=== PATIENT | male | born 1930 | race Hispanic/Latino ===

== ENCOUNTER 2020-06-14 15:52 | Emergency (ER) | payer MEDICARE ==
[2020-06-14 16:38] LABS: #Basophils 0.1 thou/uL (0.0-0.2); #Eosinphils 0.2 thou/uL (0.0-0.7); #Lymphocytes 1.5 thou/uL (1.20-3.40); #Monocytes 0.5 thou/uL (0.11-0.59); #Neutrophils 7.2 thou/uL (1.40-6.50); %Basophils 0.6 % (0.0-1.0); %Eosinophils 1.7 % (0.0-10.0); %Lymphocytes 15.5 % (21.0-51.0); %Monocytes 4.9 % (0.0-10.0); %Neutrophils 77.3 % (42.0-75.0); Hemoglobin 12.1 g/dL (14.0-18.0); Mean Corpuscular Hemoglobin 30.8 pg (27.0-31.0); Mean Corpuscular Volume 93.3 fL (78.0-98.0); Mean Platelet Volume 6.9 fL (7.4-10.4); Platelet Count 204 thou/uL (130-400); RBC Distribution Width 13.1 % (11.5-14.5); Red Blood Cell (RBC) Count 3.93 mill/uL (4.70-6.10); White Blood Cell (WBC) Count 9.3 thou/uL (4.8-10.8)
[2020-06-14 17:01] LABS: ALT (SGPT) 19 U/L (8-55); AST (SGOT) 26 U/L (5-34); Albumin 3.7 g/dL (3.4-4.8); Alkaline Phosphatase 54 U/L (40-110); Anion Gap 17 mmol/L (10-20); BUN (Urea Nitrogen) 39 mg/dL (8.4-25.7); Bilirubin, Total 0.8 mg/dL (0.2-1.2); Calc. Creatinine Clearance 0 mL/min (70-130); Calcium 8.8 mg/dL (7.8-10.44); Carbon Dioxide 18 mmol/L (23-31); Chloride 106 mmol/L (98-107); Globulin 2.6 g/dL (2.4-3.5); Glucose 92 mg/dL (83-110); Potassium 5.1 mmol/L (3.5-5.1); Protein, Total 6.3 g/dL (5.8-8.1); Sodium 136 mmol/L (136-145)
== END 2020-06-14 18:27 | disposition home or self-care (01) ==
LOC: ERS 15:52
DX: I12.9 Hypertensive chronic kidney disease with stage 1 through stage 4 chronic kidney disease, or unspecified chronic kidney disease (principal); N18.9 Chronic kidney disease, unspecified; E86.0 Dehydration; L97.519 Non-pressure chronic ulcer of other part of right foot with unspecified severity; L03.031 Cellulitis of right toe; E78.5 Hyperlipidemia, unspecified; M10.9 Gout, unspecified
CPT/HCPCS: 36415; 80053; 84484; 85025; 93005

== ENCOUNTER 2020-07-06 14:11 | Outpatient (CLI) | payer MEDICARE | END 2020-07-06 14:12 | disposition home or self-care (01) | LOC: BICULT 14:11 | PROVIDERS: ATTEND Internal Medicine Cardiovascular Disease | DX: N18.30 Chronic kidney disease, stage 3 unspecified (principal) | CPT/HCPCS: 76770 ==

== ENCOUNTER 2020-08-24 10:34 | Inpatient (IN) | payer MEDICARE ==
[2020-08-24 11:11] LABS: #Basophils 0.1 thou/uL (0.0-0.2); #Eosinphils 0.3 thou/uL (0.0-0.7); #Lymphocytes 1.8 thou/uL (1.20-3.40); #Monocytes 0.5 thou/uL (0.11-0.59); #Neutrophils 4.9 thou/uL (1.40-6.50); %Eosinophils 3.5 % (0.0-10.0); %Monocytes 6.7 % (0.0-10.0); %Neutrophils 64.9 % (42.0-75.0); Hemoglobin 11.6 g/dL (14.0-18.0); Mean Corpuscular Hemoglobin 31.1 pg (27.0-31.0); Mean Corpuscular Volume 94.1 fL (78.0-98.0); Mean Platelet Volume 7.9 fL (7.4-10.4); Platelet Count 193 thou/uL (130-400); RBC Distribution Width 13.7 % (11.5-14.5); Red Blood Cell (RBC) Count 3.74 mill/uL (4.70-6.10); White Blood Cell (WBC) Count 7.6 thou/uL (4.8-10.8)
[2020-08-24 11:24] LABS: INR-International Normal Ratio 0.9; PTT 42.2 sec (22.9-36.1); Prothrombin Time 12.8 sec (12.0-14.7)
[2020-08-24 11:36] LABS: ALT (SGPT) 13 U/L (8-55); AST (SGOT) 18 U/L (5-34); Alkaline Phosphatase 49 U/L (40-110); Anion Gap 14 mmol/L (10-20); BUN (Urea Nitrogen) 47 mg/dL (8.4-25.7); Bilirubin, Total 0.6 mg/dL (0.2-1.2); CK (CPK) 52 U/L (30-200); Calc. Creatinine Clearance 0 mL/min (70-130); Carbon Dioxide 19 mmol/L (23-31); Chloride 110 mmol/L (98-107); Globulin 3.1 g/dL (2.4-3.5); Glucose 107 mg/dL (83-110); Potassium 4.5 mmol/L (3.5-5.1); Protein, Total 7.1 g/dL (5.8-8.1); Sodium 138 mmol/L (136-145)
[2020-08-24 14:30] LABS: Troponin I Less than 0.010 ng/mL (< 0.028)
[2020-08-24 17:55] LABS: SARS-CoV-2 PCR by NAA Not Detected (NotDetected)
[2020-08-24 18:04] LABS: Troponin I Less than 0.010 ng/mL (< 0.028)
[2020-08-24] MEDS ORDERED: Nitroglycerin 0.4 MG TAB (25 Tab Bottle) SL PRN (18:56)
[2020-08-24] MEDS ORDERED: Zolpidem Tartrate 5 MG TAB PO PRN (18:57)
[2020-08-24] MEDS ORDERED: Acetaminophen 325 MG TAB PO PRN (18:58)
[2020-08-24] MEDS ORDERED: Milk Of Magnesia 30 ML UDCUP PO PRN (18:58)
[2020-08-24] MEDS ORDERED: Aspirin 325 mg Enteric Coated Tablet PO SCH (19:00)
[2020-08-24] MEDS: Simvastatin 5 MG TAB PO SCH (20:29)
[2020-08-24] MEDS: Docusate 100 MG CAP PO SCH (20:30)
[2020-08-24 23:14] VITALS: BMI 24.4
[2020-08-25 04:45] LABS: #Eosinphils 0.2 thou/uL (0.0-0.7); #Lymphocytes 1.5 thou/uL (1.20-3.40); #Monocytes 0.6 thou/uL (0.11-0.59); #Neutrophils 6.5 thou/uL (1.40-6.50); %Basophils 0.5 % (0.0-1.0); %Eosinophils 2.3 % (0.0-10.0); %Lymphocytes 16.7 % (21.0-51.0); %Monocytes 6.4 % (0.0-10.0); %Neutrophils 74.1 % (42.0-75.0); Hemoglobin 10.7 g/dL (14.0-18.0); Mean Corpuscular Hemoglobin 31.8 pg (27.0-31.0); Mean Corpuscular Volume 93.6 fL (78.0-98.0); Mean Platelet Volume 7.9 fL (7.4-10.4); Platelet Count 160 thou/uL (130-400); RBC Distribution Width 13.6 % (11.5-14.5); Red Blood Cell (RBC) Count 3.37 mill/uL (4.70-6.10); White Blood Cell (WBC) Count 8.7 thou/uL (4.8-10.8)
[2020-08-25] MEDS ORDERED: Calcium Carbonate 500 MG ChewTAB PO PRN (04:49)
[2020-08-25 05:09] LABS: ALT (SGPT) 11 U/L (8-55); AST (SGOT) 17 U/L (5-34); Albumin 3.4 g/dL (3.4-4.8); Alkaline Phosphatase 56 U/L (40-110); Anion Gap 13 mmol/L (10-20); BUN (Urea Nitrogen) 43 mg/dL (8.4-25.7); Bilirubin, Total 0.5 mg/dL (0.2-1.2); Calc. Creatinine Clearance 28 mL/min (70-130); Calcium 9.2 mg/dL (7.8-10.44); Carbon Dioxide 21 mmol/L (23-31); Cardiac Risk 2.2 (Less than 4.5); Chloride 108 mmol/L (98-107); Cholesterol 75 mg/dl (< 200 Desired); Globulin 2.9 g/dL (2.4-3.5); Glucose 125 mg/dL (83-110); HDL Cholesterol 34 mg/dL (>60 Neg Risk); LDL Cholesterol, Calculated 31 mg/dL; Potassium 4.3 mmol/L (3.5-5.1); Protein, Total 6.3 g/dL (5.8-8.1); Sodium 138 mmol/L (136-145); Triglycerides 50 mg/dL (Less than 150)
[2020-08-25] MEDS ORDERED: Sodium Chloride 0.9% 1,000 ML IV SCH ×3 (06:00→16:00)
[2020-08-25] MEDS: Calcitriol 0.25 MCG CAP PO SCH (06:10)
[2020-08-25] MEDS: Docusate 100 MG CAP PO SCH ×2 (06:10→20:33)
[2020-08-25] MEDS: Aspirin 81 mg Enteric Coated Tablet PO SCH (06:10)
[2020-08-25] MEDS: Amlodipine 10 MG TAB PO SCH (06:10)
[2020-08-25] MEDS: Carvedilol 25 MG TAB PO SCH ×2 (06:11→16:09)
[2020-08-25] MEDS ORDERED: Lidocaine 1% (PF) 30 ML VIAL ONE (06:39)
[2020-08-25] MEDS ORDERED: Heparin 10,000 UNITS/ 10 ML VIAL ONE (06:39)
[2020-08-25] MEDS ORDERED: Midazolam HCl 2 mg/2 ml Vial ONE ×2 (07:17→08:42)
[2020-08-25] MEDS ORDERED: Fentanyl 100 MCG/2 ML VIAL ONE (07:17)
[2020-08-25] MEDS ORDERED: Bivalirudin 250 MG VIAL ONE (07:39)
[2020-08-25] MEDS ORDERED: Clopidogrel Bisulfate 300 MG TAB ONE ×2 (07:47)
[2020-08-25] MEDS ORDERED: Iopamidol 370 76% 100 ML VIAL ONE (08:45)
[2020-08-25] MEDS ORDERED: Iopamidol 370 76% 50 ML VIAL FS ONE (08:45)
[2020-08-25] MEDS ORDERED: Nitroglycerin 100MG/250ML BOT 250 ML ONE (08:54)
[2020-08-25] MEDS ORDERED: Aspirin 325 mg Enteric Coated Tablet PO SCH (09:00)
[2020-08-25] MEDS ORDERED: Morphine 2 MG/ML VIAL SLOW IVP PRN (09:50)
[2020-08-25] MEDS ORDERED: Morphine 4 MG/ML VIAL SLOW IVP PRN (09:50)
[2020-08-25] MEDS ORDERED: Mag-Al 1200 mg/1200 mg/30 ML UDCUP PO PRN (09:50)
[2020-08-25] MEDS ORDERED: Ondansetron PF 4 MG/2 ML Vial ONE (10:26)
[2020-08-25] MEDS ORDERED: Pantoprazole 40 MG VIAL IVP SCH (11:15)
[2020-08-25] MEDS: Simvastatin 5 MG TAB PO SCH (20:33)
[2020-08-26 04:48] LABS: #Eosinphils 0.1 thou/uL (0.0-0.7); #Lymphocytes 1.5 thou/uL (1.20-3.40); #Monocytes 0.7 thou/uL (0.11-0.59); #Neutrophils 9.1 thou/uL (1.40-6.50); %Basophils 0.1 % (0.0-1.0); %Eosinophils 0.4 % (0.0-10.0); %Lymphocytes 12.7 % (21.0-51.0); %Monocytes 6.5 % (0.0-10.0); %Neutrophils 80.2 % (42.0-75.0); Hemoglobin 8.7 g/dL (14.0-18.0); Mean Corpuscular HGB CONC 33.9 g/dL (32.0-36.0); Mean Corpuscular Hemoglobin 31.5 pg (27.0-31.0); Mean Corpuscular Volume 92.8 fL (78.0-98.0); Mean Platelet Volume 7.7 fL (7.4-10.4); Platelet Count 153 thou/uL (130-400); RBC Distribution Width 13.6 % (11.5-14.5); Red Blood Cell (RBC) Count 2.77 mill/uL (4.70-6.10); White Blood Cell (WBC) Count 11.4 thou/uL (4.8-10.8)
[2020-08-26 05:13] LABS: ALT (SGPT) 11 U/L (8-55); AST (SGOT) 18 U/L (5-34); Albumin 2.8 g/dL (3.4-4.8); Alkaline Phosphatase 29 U/L (40-110); Anion Gap 13 mmol/L (10-20); BUN (Urea Nitrogen) 48 mg/dL (8.4-25.7); Bilirubin, Total 0.7 mg/dL (0.2-1.2); Calc. Creatinine Clearance 27 mL/min (70-130); Calcium 8.8 mg/dL (7.8-10.44); Carbon Dioxide 18 mmol/L (23-31); Chloride 108 mmol/L (98-107); Globulin 2.4 g/dL (2.4-3.5); Glucose 120 mg/dL (83-110); Potassium 4.5 mmol/L (3.5-5.1); Protein, Total 5.2 g/dL (5.8-8.1); Sodium 134 mmol/L (136-145)
[2020-08-26] MEDS: Calcitriol 0.25 MCG CAP PO SCH (09:49)
[2020-08-26] MEDS: Docusate 100 MG CAP PO SCH ×2 (09:49→20:14)
[2020-08-26] MEDS: Clopidogrel Bisulfate 75 MG TAB PO SCH (09:49)
[2020-08-26] MEDS: Amlodipine 10 MG TAB PO SCH (09:49)
[2020-08-26] MEDS: Carvedilol 25 MG TAB PO SCH ×2 (09:49→15:35)
[2020-08-26] MEDS: Aspirin 81 mg Enteric Coated Tablet PO SCH (09:49)
[2020-08-26] MEDS: Sodium Chloride 0.9% 1,000 ML IV SCH ×2 (15:12→17:10)
[2020-08-26] MEDS: Simvastatin 5 MG TAB PO SCH (20:14)
[2020-08-27 05:11] LABS: Anion Gap 8 mmol/L (10-20); BUN (Urea Nitrogen) 52 mg/dL (8.4-25.7); Calc. Creatinine Clearance 21 mL/min (70-130); Calcium 8.4 mg/dL (7.8-10.44); Carbon Dioxide 20 mmol/L (23-31); Chloride 109 mmol/L (98-107); Glucose 85 mg/dL (83-110); Potassium 4.1 mmol/L (3.5-5.1); Sodium 133 mmol/L (136-145)
[2020-08-27] MEDS: Sodium Chloride 0.9% 1,000 ML IV SCH ×2 (05:50→19:11)
[2020-08-27] MEDS ORDERED: Carvedilol 6.25 MG TAB PO SCH (08:30)
[2020-08-27] MEDS: Carvedilol 25 MG TAB PO SCH (09:12)
[2020-08-27] MEDS: Amlodipine 10 MG TAB PO SCH (09:13)
[2020-08-27] MEDS: Docusate 100 MG CAP PO SCH ×2 (09:13→20:22)
[2020-08-27] MEDS: Calcitriol 0.25 MCG CAP PO SCH (09:13)
[2020-08-27] MEDS: Clopidogrel Bisulfate 75 MG TAB PO SCH (09:13)
[2020-08-27] MEDS: Aspirin 81 mg Enteric Coated Tablet PO SCH (09:13)
[2020-08-27] MEDS: Carvedilol 6.25 MG TAB PO SCH (16:56)
[2020-08-27] MEDS: Simvastatin 5 MG TAB PO SCH (20:21)
[2020-08-28 05:12] LABS: Anion Gap 9 mmol/L (10-20); BUN (Urea Nitrogen) 43 mg/dL (8.4-25.7); Calc. Creatinine Clearance 24 mL/min (70-130); Calcium 8.3 mg/dL (7.8-10.44); Carbon Dioxide 19 mmol/L (23-31); Chloride 111 mmol/L (98-107); Glucose 85 mg/dL (83-110); Potassium 4.2 mmol/L (3.5-5.1); Sodium 135 mmol/L (136-145)
[2020-08-28] MEDS: Sodium Chloride 0.9% 1,000 ML IV SCH (06:50)
[2020-08-28] MEDS: Carvedilol 6.25 MG TAB PO SCH (08:40)
[2020-08-28] MEDS: Aspirin 81 mg Enteric Coated Tablet PO SCH (08:41)
[2020-08-28] MEDS: Amlodipine 10 MG TAB PO SCH (08:41)
[2020-08-28] MEDS: Clopidogrel Bisulfate 75 MG TAB PO SCH (08:41)
[2020-08-28] MEDS: Calcitriol 0.25 MCG CAP PO SCH (08:41)
[2020-08-28] MEDS: Docusate 100 MG CAP PO SCH (08:42)
[2020-08-28] MEDS ORDERED: Amlodipine 10 MG TAB PO SCH (09:15)
[2020-08-28] MEDS ORDERED: Amlodipine 5 MG TAB PO SCH (09:30)
[2020-08-28 11:25] VITALS: BP 149/69; TEMP 98.4
[2020-08-29] MEDS ORDERED: Amlodipine 5 MG TAB PO SCH (09:00)
== END 2020-08-28 12:00 | disposition home health service (06) | DRG 247 ==
LOC: ERS 10:34 → ERHOLD 12:35 → 2NO 19:16
PROVIDERS: ADMIT Internal Medicine Cardiovascular Disease; ATTEND Internal Medicine Cardiovascular Disease
PROC: 027036Z Dilation of Coronary Artery, One Artery with Three Drug-eluting Intraluminal Devices, Percutaneous Approach (ICD-10-PCS; principal; 2020-08-25)
PROC: 4A023N7 Measurement of Cardiac Sampling and Pressure, Left Heart, Percutaneous Approach (ICD-10-PCS; 2020-08-25)
PROC: B2111ZZ Fluoroscopy of Multiple Coronary Arteries using Low Osmolar Contrast (ICD-10-PCS; 2020-08-25)
PROC: 3E03317 Introduction of Other Thrombolytic into Peripheral Vein, Percutaneous Approach (ICD-10-PCS; 2020-08-25)
DX: I25.10 Atherosclerotic heart disease of native coronary artery without angina pectoris (principal); N18.4 Chronic kidney disease, stage 4 (severe); I12.9 Hypertensive chronic kidney disease with stage 1 through stage 4 chronic kidney disease, or unspecified chronic kidney disease; I42.9 Cardiomyopathy, unspecified; E78.00 Pure hypercholesterolemia, unspecified; M10.9 Gout, unspecified; E78.5 Hyperlipidemia, unspecified; I95.1 Orthostatic hypotension; Z20.822 Contact with and (suspected) exposure to COVID-19; Z87.891 Personal history of nicotine dependence; Z90.49 Acquired absence of other specified parts of digestive tract; Z98.49 Cataract extraction status, unspecified eye
CPT/HCPCS: 36415; 71045; 80048; 80053; 80061; 82550; 83735; 83880; 84484; 85025; 85347; 85610; 85730; 87635; 93005; 93010; 93798; C1769; C1874; C9113; J0583; J1644; J2001; J2250; J2270; J2405; J3010; Q9967; U0003; U0005